=== PATIENT | male | born 1955 | race Caucasian/White ===

== ENCOUNTER → 2022-04-02 | Day surgery (SDC) | payer MEDICARE, OTHER ==
[~2022-04-02] VITALS: Ht 175.3 cm; Wt 90.9 kg
[~2022-04-02] MED LIST: LISINOPRIL10 MG PO; METOPROLOL SUCC25 MG PO; OMEPRAZOLE40 MG PO
== END | disposition home or self-care (01) ==
LOC: FAS 05:53
DX: K57.30 Diverticulosis of large intestine without perforation or abscess without bleeding (principal); N40.0 Benign prostatic hyperplasia without lower urinary tract symptoms; J44.9 Chronic obstructive pulmonary disease, unspecified; K21.9 Gastro-esophageal reflux disease without esophagitis; I10 Essential (primary) hypertension; Z86.16 Personal history of COVID-19; Z87.891 Personal history of nicotine dependence; Z79.899 Other long term (current) drug therapy
CPT/HCPCS: J2250; J2704; J7120